=== PATIENT | female | born 1975 | race Caucasian/White ===

== ENCOUNTER 2017-03-06 13:02 | Emergency (ER) | payer BC ==
[2017-03-06 13:50] VITALS: BP 156/95
--- NOTE | 2017-03-06 14:25 | UC ---
Cardiac HPI - HPI Summary HPI Summary: ONSET EARLIER TODAY OF SOB, DIZZINESS, NAUSEA COMING IN WAVES. HAS SOME CHEST DISCOMFORT THAT "FELT LIKE INDIGESTION". TOOK TUMS WITH NO RELIEF. FEELS VERY TIRED. FELT FLUSHED. USED ALBUTEROL WITH NO RELIEF. - History of Current Complaint Chief Complaint: UCGeneralIllness Stated Complaint: SOB,STOMACH,DIZZINESS Time Seen by Provider: 03/06/17 14:18 Hx Obtained From: Patient Hx Last Menstrual Period: 3 weeks ago Onset/Duration: Sudden Onset, Lasting Hours, Still Present Initial Severity: Moderate Current Severity: Mild Pain Intensity: 1 Chest Pain Location: Mid Sternal Character: Pressure/Squeezing Aggravating Factor(s): Nothing Alleviating Factor(s): Spontaneous Resolution Associated Signs & Symptoms: Positive: Anxiety, Dizziness, Nausea/Vomiting - Allergy/Home Medications Allergies/Adverse Reactions: Allergies Allergy/AdvReac Type Severity Reaction Status Date / Time No Known Allergies Allergy Verified 03/06/17 13:41 Home Medications: Home Medications diPHENhydraMINE PO* [Benadryl PO 25 MG TAB*] 2 tab BEDTIME 03/06/17 [History Confirmed 03/06/17] PMH/Surg Hx/FS Hx/Imm Hx Respiratory History: Asthma - Surgical History Surgical History: Yes Surgery Procedure, Year, and Place: D&C. CARPAL TUNNEL B/L. LEFT KNEE - Family History Known Family History: Positive: Hypertension Negative: Cardiac Disease - Social History Alcohol Use: Occasionally Substance Use Type: None Smoking Status (MU): Current Every Day Smoker Type: Cigarettes Amount Used/How Often: 5-10 CIGS PER DAY Length of Time of Smoking/Using Tobacco: 7 YRS - Immunization History Most Recent Influenza Vaccination: no 2017 Review of Systems Constitutional: Negative, Fatigue ENT: Negative Respiratory: Shortness Of Breath Cardiovascular: Chest Pain Gastrointestinal: Nausea Neurological: Other - DIZZY All Other Systems Reviewed And Are Negative: Yes Physical Exam Triage Information Reviewed: Yes Appearance: Well-Appearing, No Pain Distress, Well-Nourished Vital Signs: Initial Vital Signs Temp 99.3 F 03/06/17 13:42 Pulse 87 03/06/17 13:42 Resp 20 03/06/17 13:42 BP 156/95 03/06/17 13:42 Pulse Ox 100 03/06/17 13:42 Vital Signs Reviewed: Yes Eyes: Positive: Conjunctiva Clear ENT: Positive: Hearing grossly normal, Pharynx normal, TMs normal Neck: Positive: Supple, Nontender, No Lymphadenopathy Respiratory Exam: Normal Cardiovascular Exam: Normal Abdomen Description: Positive: Soft Musculoskeletal: Positive: No Edema Neurological: Positive: Alert Psychological: Positive: Age Appropriate Behavior Skin: Negative: rashes Diagnostics - EKG Cardiac Rate: NL Cardiac Rhythm: Sinus: Normal - 79BPM Ectopy: None ST Segment: Normal - Assessment/Plan Course Of Treatment: TO [facility] BY PR[facility] CAR - Clinical Impression Provider Diagnoses: CHEST PAIN Discharge - Discharge Plan Condition: Stable Disposition: OTHER Discharge Disposition Comment: TO [facility] BY PRIVATE CAR Patient Education Materials: Chest Pain (ED) Referrals: Av Morales [Primary Care Provider] - If Needed Additional Instructions: GO DIRECTLY TO THE [facility] ED FROM HERE FOR FURTHER EVALUATION.
== END 2017-03-06 14:33 ==
LOC: UCCORT 13:02
DX: R07.9 Chest pain, unspecified (principal); Z72.0 Tobacco use
CPT/HCPCS: 93005; 99212; G0463

== ENCOUNTER 2019-04-28 10:39 | Emergency (ER) | payer BC | END 2019-04-28 11:24 | disposition left against medical advice (07) | LOC: UCCORT 10:39 | DX: Z53.21 Procedure and treatment not carried out due to patient leaving prior to being seen by health care provider (principal) ==